=== PATIENT | male | born 1985 | race Caucasian/White ===

== ENCOUNTER 2019-04-09 00:13 | Emergency (ER) | payer SELFPAY ==
[~2019-04-09] VITALS: Ht 175.3 cm; Wt 63.0 kg
[2019-04-09] MEDS ORDERED: ACETAMINOPHEN 500MG TABLET PO ONE (03:00)
[2019-04-09 03:04] VITALS: BP 127/88
== END 2019-04-09 03:10 | disposition home or self-care (01) ==
LOC: ER 00:13
DX: R07.89 Other chest pain (principal); M54.9 Dorsalgia, unspecified; I10 Essential (primary) hypertension; F15.10 Other stimulant abuse, uncomplicated; F17.200 Nicotine dependence, unspecified, uncomplicated
CPT/HCPCS: 71045; 72070; 72100; 93005; 99283